=== PATIENT | female | born 2000 | race American Indian/Alaskan Native ===

== ENCOUNTER 2021-12-09 13:37 | Emergency (ER) | payer OTHER ==
--- NOTE | 2021-12-09 14:53 | XRay Report ---
LEFT WRIST 4 VIEWS INDICATION: L WRIST PAIN. COMPARISON: None. IMPRESSION: The distal radial ulnar articulation appears slightly widened measuring 4-5 mm. This cou ld represent subluxation/ligamentous injury although no associated soft tissue swelling is appreciate d. An associated Galleazi fracture could also be considered. Correlate with the patient and consider left forearm x-ray to exclude associated radial fracture. MRI of the left wrist may also prove useful . The remaining visualized bony structures are intact. No significant DJD. Signer Name: Darryl Wong Jr, MD Signed: 12/09/2021 2:48 PM Workstation Name: [id number]
[2021-12-09] MEDS ORDERED: oxyCODONE /ACETAMINOPHEN 5-325MG TAB PO ONE (15:39)
--- NOTE | 2021-12-09 16:26 | XRay Report ---
LEFT FOREARM 2 VIEWS INDICATION: injury, pain. COMPARISON: Left wrist performed earlier today IMPRESSION: The radius and ulna are intact. No fracture is appreciated. No significant joint patholo gy. Widening of the distal radial ulnar joint is less pronounced on forearm x-ray. If further evalua tion is needed, consider MRI of the wrist. Signer Name: Darryl Wong Jr, MD Signed: 12/09/2021 4:22 PM Workstation Name: [id number]
--- NOTE | 2021-12-09 16:39 | Emergency Department Report ---
ED Upper Extremity Inj HPI - General Chief Complaint: Extremity Injury, Upper Stated Complaint: LT WRIST INJURY Time Seen by Provider: 12/09/21 15:29 Source: patient Mode of arrival: Ambulatory Limitations: No Limitations - History of Present Illness Initial Comments: 21-year-old black female presents to the emergency department with right wrist pain. 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 She states that she was seen in ER in [place] and diagnosed with wrist sprain, and today while at work, wrist was kicked by another child so she decided to come in for further evaluation. Complaint: Injury to:: left, wrist -: Sudden, days(s) (5) Other Extremity Injury: Wrist: Left Other Injuries: none Handedness: right Place: work Severity scale (0 -10): 8 Improves With: immobilization Worsens With: movement of extremity Context: injury Associated Symptoms: denies other symptoms Treatments Prior to Arrival: splint - Related Data Previous Rx's Medication Instructions Recorded Last Taken Type Naproxen [Naprosyn] 500 mg PO BID #14 tab 12/09/21 Unknown Rx Allergies Allergy/AdvReac Type Severity Reaction Status Date / Time No Known Allergies Allergy Verified 12/09/21 13:55 ED Review of Systems ROS: Stated complaint: LT WRIST INJURY Other details as noted in HPI Comment: All other systems reviewed and negative Constitutional: denies: chills, fever Respiratory: denies: shortness of breath, SOB with exertion, SOB at rest Cardiovascular: denies: chest pain, palpitations Gastrointestinal: denies: abdominal pain, nausea, vomiting Musculoskeletal: denies: back pain Skin: denies: rash, lesions Neurological: denies: headache, weakness ED Past Medical Hx - Past Medical History Previous Medical History?: No - Medications Home Medications: Home Medications Medication Instructions Recorded Confirmed Last Taken Type Naproxen [Naprosyn] 500 mg PO BID #14 tab 12/09/21 Unknown Rx ED Physical Exam - General Limitations: No Limitations General appearance: alert, in no apparent distress - Head Head exam: Present: atraumatic, normocephalic - Eye Eye exam: Present: normal appearance. Absent: conjunctival injection - Neck Neck exam: Present: normal inspection - Respiratory Respiratory exam: Absent: respiratory distress - Cardiovascular Cardiovascular Exam: Present: regular rate (/) - GI/Abdominal GI/Abdominal exam: Absent: distended - Expanded Upper Extremity Exam Left Shoulder Exam: Present: normal inspection Upper Arm exam: Present: normal inspection Elbow exam: Present: normal inspection Forearm Wrist exam: Present: normal inspection, tenderness. Absent: full ROM, swelling, abrasion, laceration, ecchymosis, deformity, dislocation, erythema, tenderness over anatomical snuff box Hand Wrist exam: Present: tenderness. Absent: dislocation, erythema, nail avulsion Neuro motor exam: Present: wrist extension intact, thumb opposition intact, thumb IP flexion intact, thumb adduction intact, fingers 2-5 abduction intact Neurosensory exam: Present: radial nerve intact Vascular: Present: normal capillary refill. Absent: vascular compromise, pulse deficit radial art - Back Exam Back exam: Present: normal inspection - Neurological Exam Neurological exam: Present: alert, oriented X3 - Psychiatric Psychiatric exam: Present: normal affect, normal mood - Skin Skin exam: Present: warm, dry, intact, normal color ED Course Vital Signs 12/09/21 12/09/21 13:54 17:13 Temperature 98.2 F Pulse Rate 69 70 Respiratory 16 16 Rate Blood Pressure 110/67 Blood Pressure 108/64 [Right] O2 Sat by Pulse 100 100 Oximetry ED Medical Decision Making - Radiology Data Radiology results: report reviewed, image reviewed Left wrist x-ray: IMPRESSION: The distal radial ulnar articulation appears slightly widened measuring 4-5 mm. This could represent subluxation/ligamentous injury although no associated soft tissue swelling is appreciated. An associated Galle[place] fracture could also be considered. Correlate with the patient and consider left forearm x-ray to exclude associated radial fracture. MRI of the left wrist may also prove useful. The remaining visualized bony structures are intact. No significant DJD. Left forearm x-ray: IMPRESSION: The radius and ulna are intact. No fracture is appreciated. No significant joint pathology. Widening of the distal radial ulnar joint is less pronounced on forearm x-ray. If further evaluation is needed, consider MRI of the wrist. - Medical Decision Making 21-year-old black female presents to the emergency department with right wrist pain. 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 She states that she was seen in ER in [place] and diagnosed with wrist sprain, and today while at work, wrist was kicked by another child so she decided to come in for further evaluation. Left wrist x-ray read as possible fracture and requested left forearm x-ray. Left forearm x-ray noted be within normal limits and wrist fracture ruled out. Patient came in with Velcro wrist splint, so Velcro wrist splint was reapplied, and patient was advised to follow-up with orthopedics for further evaluation and management if no improvement after 1 week of anti-inflammatories. She verbalized understanding of and agreement with plan of care. Critical care attestation.: If time is entered above; I have spent that time in minutes in the direct care of this critically ill patient, excluding procedure time. ED Disposition Clinical Impression: Left wrist sprain Qualifiers: Encounter type: initial encounter Qualified Code(s): S63.502A - Unspecified sprain of left wrist, initial encounter Disposition: HOME / SELF CARE / HOMELESS Is pt being admited?: No Does the pt Need Aspirin: No Condition: Stable Instructions: How to Use Cold Therapy, [id number], Wrist Sprain Rehab- [facility], Wrist Sprain, Adult Additional Instructions: Take medications as prescribed. Keep wrist splint in place. Follow-up with orthopedics if no improvement or worsening symptoms. Prescriptions: Naproxen [Naprosyn] 500 mg PO BID #14 tab Referrals: SHAR VAZ MD [Staff Physician] - 3-5 Days Forms: Work/School Release Form(ED) Time of Disposition: 16:39
[2021-12-09 17:13] VITALS: BP 108/64
== END 2021-12-09 17:14 | disposition home or self-care (01) ==
LOC: ED 13:37
DX: S63.502A Unspecified sprain of left wrist, initial encounter (principal); W19.XXXA Unspecified fall, initial encounter; Y93.89 Activity, other specified; Y92.89 Other specified places as the place of occurrence of the external cause; Y99.8 Other external cause status
CPT/HCPCS: 99283

== ENCOUNTER 2022-04-09 20:26 | Emergency (ER) | payer SELFPAY | END 2022-04-09 23:00 | disposition left against medical advice (07) | LOC: ED 20:26 | DX: T78.40XA Allergy, unspecified, initial encounter (principal); Z53.21 Procedure and treatment not carried out due to patient leaving prior to being seen by health care provider; X58.XXXA Exposure to other specified factors, initial encounter ==